=== PATIENT | male | born 1940 | race Two or more races ===

== ENCOUNTER → 2019-09-13 | Emergency (ER) | payer OTHER ==
[~2019-09-13] VITALS: Ht 172.7 cm; Wt 86.2 kg
== END | disposition expired ==
LOC: EDBD 22:29 → ER 22:29
DX: I46.9 Cardiac arrest, cause unspecified (principal); J44.9 Chronic obstructive pulmonary disease, unspecified; E11.9 Type 2 diabetes mellitus without complications
CPT/HCPCS: 31500; 92950; 99291